=== PATIENT | female | born 1970 | race Caucasian/White ===

== ENCOUNTER 2024-07-20 05:38 | Day surgery (SDC) | payer BC ==
[2024-07-19 13:05] VITALS: BMI 25.2
[2024-07-20] MEDS ORDERED: EPINEPHrine 1 MG/ML VIAL ONE (06:09)
[2024-07-20] MEDS ORDERED: Thrombin 5000 UNITS/5 ML VIAL ONE (06:10)
[2024-07-20] MEDS ORDERED: Bupivacaine PF 0.5% 30 ML VIAL ONE (06:10)
[2024-07-20] MEDS ORDERED: CEFAZOLIN 2 GM VIAL ONE ×2 (06:13→10:56)
[2024-07-20] MEDS ORDERED: fentaNYL PF 100 MCG/2 ML SYRINGE ONE (06:22)
[2024-07-20] MEDS ORDERED: PROPOFOL 20 ML ONE ×2 (06:23→07:45)
[2024-07-20] MEDS ORDERED: Rocuronium Bromide 10 MG/ML (10ML VIAL) ONE (06:24)
[2024-07-20] MEDS ORDERED: Lidocaine 2% PF 5 ML VIAL ONE (06:24)
[2024-07-20] MEDS ORDERED: MINERAL OIL/WHITE PETROLATUM 3.5 GM TUBE ONE (06:24)
[2024-07-20] MEDS ORDERED: Dexamethasone 4 mg/ml Vial ONE (07:19)
[2024-07-20] MEDS ORDERED: Ondansetron PF 4 MG/2 ML Vial ONE (07:19)
[2024-07-20] MEDS ORDERED: NEOSTIGMINE 3 MG/3 ML SYRINGE ONE (07:45)
[2024-07-20] MEDS ORDERED: Glycopyrrolate 0.2 MG/ML 5 ML SYRINGE ONE (07:45)
[2024-07-20] MEDS ORDERED: HYDROmorphone 0.5 MG/0.5 ML SYRINGE ONE ×2 (08:15→08:47)
[2024-07-20] MEDS ORDERED: fentaNYL 50 mcg/mL 1 mL Vial ONE (08:15)
[2024-07-20] MEDS ORDERED: HYDROcodone/Acetaminophen 5/325 mg Tablet ONE (09:56)
[2024-07-20] MEDS ORDERED: Morphine 2 MG/ML VIAL SLOW IVP PRN (10:30)
[2024-07-20] MEDS ORDERED: Ondansetron PF 4 MG/2 ML Vial IVP PRN (10:30)
[2024-07-20] MEDS ORDERED: Promethazine HCl 25 MG/ML VIAL IVPB PRN (10:30)
[2024-07-20] MEDS ORDERED: HYDROcodone/Acetaminophen 5/325 mg Tablet PO PRN ×2 (10:30)
[2024-07-20] MEDS ORDERED: Sodium Chloride 0.9% 100 ML ONE (10:56)
== END 2024-07-20 12:20 | disposition home or self-care (01) ==
LOC: SDC 05:38
PROVIDERS: ATTEND Neurological Surgery
PROC: 01NB0ZZ Release Lumbar Nerve, Open Approach (ICD-10-PCS; principal; 2024-07-20)
DX: M71.30 Other bursal cyst, unspecified site (principal); M54.16 Radiculopathy, lumbar region; G89.4 Chronic pain syndrome; J30.2 Other seasonal allergic rhinitis; M48.061 Spinal stenosis, lumbar region without neurogenic claudication; K21.9 Gastro-esophageal reflux disease without esophagitis; Z87.59 Personal history of other complications of pregnancy, childbirth and the puerperium; Z90.49 Acquired absence of other specified parts of digestive tract; Z88.8 Allergy status to other drugs, medicaments and biological substances; F17.200 Nicotine dependence, unspecified, uncomplicated; Z90.710 Acquired absence of both cervix and uterus; Z79.899 Other long term (current) drug therapy
CPT/HCPCS: J0171; J0665; J1100; J1171; J2405; J2704; J3010